=== PATIENT | female | born 1940 | race Hispanic/Latino ===

== ENCOUNTER 2018-04-01 18:45 | Emergency (ER) | payer MEDICARE, OTHER ==
--- NOTE | 2018-04-01 19:41 | RAD ---
CHEST ONE VIEW: History: Cough. Comparison: 05-21-11 FINDINGS: Cardiac silhouette is magnified and enlarged. Pulmonary vasculature is unremarkable. Mediastinum is m idline. No lobar consolidation or evidence of pneumothorax. IMPRESSION: 1. Cardiomegaly. 2. No active cardiopulmonary abnormalities are otherwise demonstrated. POS: [facility]
== END 2018-04-01 20:04 | disposition home or self-care (01) ==
LOC: SCSER 18:45
DX: J20.9 Acute bronchitis, unspecified (principal); E11.9 Type 2 diabetes mellitus without complications; I10 Essential (primary) hypertension; Z79.4 Long term (current) use of insulin; Z79.899 Other long term (current) drug therapy; Z79.82 Long term (current) use of aspirin
CPT/HCPCS: 71045